=== PATIENT | female | born 1995 | race Caucasian/White ===

== ENCOUNTER 2020-11-01 08:12 | Outpatient (CLI) | payer OTHER, SELFPAY ==
--- NOTE | 2020-11-16 13:14 | WPDHOMESLEEP ---
Sleep Study - Home Unattended Date of Study: 11/01/20 <Debora Smith DO - Last Filed: 11/16/20 13:51> Ordering Provider: Chelsi Reza MD <Debora Smith DO - Last Filed: 11/16/20 13:51> Interpreting Provider: Debora Smith DO <Debora Smith DO - Last Filed: 11/16/20 13:51> Home Sleep Study Type: Apnea Link Air <Debora Smith DO - Last Filed: 11/16/20 13:51> Height: 1.52 m <Debora Smith DO - Last Filed: 11/16/20 13:51> Weight: 99.79 kg <Debora Smith DO - Last Filed: 11/16/20 13:51> Body Mass Index: 43.0 <Debora Smith DO - Last Filed: 11/16/20 13:51> Neck Circumference (inches): 16 <Debora Smith DO - Last Filed: 11/16/20 13:51> [place]: 17 <Debora Smith DO - Last Filed: 11/16/20 13:51> Reason for Sleep Study Hypersomnia <Deboar Smith DO - Last Filed: 11/16/20 13:51> Sleep History Patient is a 25-year-old female who had a home sleep study due to chronic insomnia. She states that she developed insomnia at the age of 14 and she was started on a hypnotic at the age of 22. The patient states that she frequently awakens from sleep short of breath and wakes up with heartburn belching or cough. her sleep history is positive for snoring, trouble sleeping when she has a cold, waking up gasping for air, breathing problems at night, excessive sweating, heart palpitations, falling asleep during the day and having trouble at school or work due to sleepiness. Patient denies falling asleep while driving. the patient denies falling asleep while laughing or crying. She rarely experiences loss of muscle tone when emotional. She rarely feels unable to move when waking or falling asleep. She often experiences vivid dreamlike scenes when waking up or falling asleep. She denies feeling afraid of going to sleep. She often has nightmares and rarely remembers her dreams. She does have thoughts racing through her mind. She feels sad or depressed constantly as well as having anxiety. She states that she has muscular tension and notices parts of her body jerking. She does kick throughout the night. She does experience crawling and aching feelings in her legs. She does state that she does have leg pain. She will often have morning jaw pain. Fine she states that she is bothered by pain throughout the day and she is often weekend by pain throughout the night. She does wake up feeling stiff in the morning. She does wake up with sore and achy muscles. She does wake up with pain in the neck spine or joints. She states that she does experience headache, bowel disturbances, feeling tense, depressed, stomach trouble, fatigue, and memory problems. she states that she also takes antacids regularly and has difficulty concentrating. She states that she gets 4-6 hours of sleep per night. She normally goes to bed at 10:00 p.m. on the weekdays and 11:00 p.m. to 12:00 a.m. on the weekends. She states that it takes 30 minutes to an hour to fall asleep and she wakes up 3-4 times per night. When she wakes up it takes about 30 minutes to an hour to fall back asleep. When she wakes up throughout the night she usually uses the restroom and then will read. She wakes up around 7-10 a.m. on the weekdays and 8:00 a.m. on the weekends on average she will spend multiple hours sling in bed after waking up in the morning. She is currently lives with her aunt. She does not have any split shifts or rotating shifts at work. She does not drink any caffeinated beverages before going to bed. She denies physical exercise at night time. She does read and watch television before falling asleep. She will take naps during the afternoon but she does not feel refreshed afterwards. After a night of sleep she usually feels drowsy and or tired. The patient used to smoke cigarettes several years ago but currently vapes. She does not regularly consume
[2020-11-16 13:51] VITALS: BMI 43.0
== END 2020-11-02 12:19 | disposition home or self-care (01) ==
PROVIDERS: Visit Provider Internal Medicine Critical Care Medicine
DX: G47.10 Hypersomnia, unspecified (principal); G47.33 Obstructive sleep apnea (adult) (pediatric); G47.31 Primary central sleep apnea; G25.81 Restless legs syndrome
CPT/HCPCS: 95806

== ENCOUNTER 2021-12-28 12:27 | Emergency (ER) | payer OTHER, MEDICAID, SELFPAY ==
[2021-12-28 12:45] VITALS: BP 133/91; PULSE 103; RESP 18; TEMP 37.2; O2SAT 100
--- NOTE | 2021-12-28 14:21 | ED.SKABFB ---
HPI - Skin/Abscess/Foreign Bdy General Chief complaint: Skin/Abscess/Foreign Body Stated complaint: RASH X10 DAYS Time Seen by Provider: 12/28/21 14:20 Source: patient Mode of arrival: ambulatory Limitations: no limitations History of Present Illness HPI narrative: 26 years old white female presents with itching rash in different parts of body started 1 week ago 2 days after came in from a vacation. Patient denies any similar symptoms with any of their family members. History of allergy, currently on Zyrtec. She is allergic to Benadryl. She denies any fever, chills, nausea, vomiting. Related Data Home Medications Medication Instructions Recorded Confirmed aripiprazole 20 mg tablet 20 mg PO DAILY 06/09/20 bupropion HCl 300 mg 24 hr tablet, 300 mg PO QAM 06/09/20 extended release cholecalciferol (vitamin D3) 125 125 mcg PO DAILY 06/09/20 mcg (5,000 unit) capsule duloxetine 60 mg capsule,delayed 60 mg PO DAILY 06/09/20 release omeprazole 20 mg capsule,delayed 20 mg PO DAILY 06/09/20 release trazodone 100 mg tablet 100 mg PO QHS PRN 06/09/20 Allergies Allergy/AdvReac Type Severity Reaction Status Date / Time diphenhydramine AdvReac Unknown Unknown Verified 03/28/21 11:28 [From Benadryl Allergy] Review of Systems Review of Systems: All systems reviewed & are unremarkable except as noted in HPI and below PMFSH Past Medical History Medical History ADD (attention deficit disorder) Anxiety Depression Environmental allergies GERD (gastroesophageal reflux disease) Migraine headache Obstructive sleep apnea (adult) (pediatric) (~10/2020) Family History Family History Grandparent Cancer Sibling Depression Thyroid disease Heart disease Mother Depression Hypertension Diabetes mellitus Father Asthma Diabetes mellitus Heart disease Depression Social History Social History Years smoked: 5 Smoking status: Former smoker (and currently vapes) Tobacco type: e-cigarettes/vaping Exam Narrative: General appearance: Well-developed, well-nourished Skin: Papular rash, scattered, with a lot of scratch gale. Different parts of the body mainly at the axilla bilaterally, lower abdomen, chest and back. Head: Normocephalic, nontraumatic Eyes: Clear conjunctiva ENT: Oropharynx normal, ears normal, nose normal Neck: Supple, nontender Chest and respiratory: Airway patent, no respiratory distress, no accessory muscle use Heart: Regular rate/rhythm Abdomen: Soft, nontender, no organomegaly, quiet bowel sounds Vascular: Normal peripheral pulses, normal capillary refill. Musculoskeletal: Normal range of motion, nontender back Neurologic: Alert and oriented ?3, [employer] is normal as tested, no gross motor deficit Course Course Emergency Course: Allergic reaction is my concern. Patient received epinephrine, prednisone and Zyrtec in our emergency room with good response. Vital Signs Vital signs: Vital Signs Temperature 37.2 C 12/28/21 12:45 Pulse Rate 103 H 12/28/21 12:45 Respiratory Rate 18 12/28/21 12:45 Blood Pressure 133/91 H 12/28/21 12:45 Pulse Oximetry 100 12/28/21 12:45 Oxygen Delivery Room Air 12/28/21 12:45 Temperature 37.2 C 12/28/21 12:45 Pulse Rate 103 H 12/28/21 12:45 Respiratory Rate 18 12/28/21 12:45 Blood Pressure 133/91 H 12/28/21 12:45 Pulse Oximetry 100 12/28/21 12:45 Oxygen Delivery Room Air 12/28/21 12:45 MDM - Skin/Abscess/Foreign Bdy Differential Diagnosis Differential diagnosis: [place]
[2021-12-28] MEDS: predniSONE 20 MG TABLET 60 MG PO (15:23)
[2021-12-28] MEDS: EPINEPHrine HCL INJ 1 MG/ML AMPUL 0.3 MG IM (15:24)
[2021-12-28] MEDS: EPINEPHrine HCL INJ 1 MG/ML AMPUL 0.5 MG IM (16:31)
== END 2021-12-28 16:59 | disposition home or self-care (01) ==
PROVIDERS: Emergency Provider Emergency Medicine
DX: R21 Rash and other nonspecific skin eruption (principal); G47.33 Obstructive sleep apnea (adult) (pediatric); F98.8 Other specified behavioral and emotional disorders with onset usually occurring in childhood and adolescence; K21.9 Gastro-esophageal reflux disease without esophagitis; F41.9 Anxiety disorder, unspecified; F32.A Depression, unspecified; F17.290 Nicotine dependence, other tobacco product, uncomplicated
CPT/HCPCS: 96372; 99284; A9270; J0171; J7512